=== PATIENT | female | born 1970 | race Caucasian/White ===

== ENCOUNTER 2022-05-07 07:00 | Outpatient (CLI) | payer BC, SELFPAY ==
--- NOTE | 2022-05-07 07:14 | CT_ITS ---
WS: [id number] CT NECK TECHNIQUE: Contrast-enhanced CT of the neck with coronal and sagittal reformatted images. CLINICAL INFORMATION: OTALGIA, UNSPECIFIED EAR COMPARISON: None. DLP: 248.[address] scans at [facility] use at least one of these dose optimization techniques: automated e xposure control; mA and/or kV adjustment per patient size (includes targeted exams where dose is matc hed to clinical indication); or iterative reconstruction. FINDINGS: Mastoid air cells are well aerated. Paranasal sinuses are well aerated. Straightening of the normal c ervical lordosis. Normal posterior nasopharynx. Normal parapharyngeal fat. Dental artifact degrades s ome images at the tongue base. Normal parotid glands. Normal submandibular glands. No cervical lympha denopathy. Slightly heterogeneous and somewhat enlarged thyroid gland. No evidence of supraglottic or glottic mass. Lung apices are well aerated. CT/CT neck w con* [id number] IMPRESSION: 1. No acute neck findings. 2. Paranasal sinuses and mastoid air cells well aerated. Normal posterior naso pharynx. 3. No evidence of glottic or glottic mass. 4. No cervical lymphadenopathy. 5. Slightly heterogeneous and somewhat enlarged thyroid gland. This can be fur ther evaluated with ultrasound.
[2022-05-07] MEDS: iohexol 350 mg/mL 100 mL Btl IV (07:47)
== END 2022-05-07 07:01 | disposition home or self-care (01) ==
LOC: RAD 07:02
PROVIDERS: PCP Nurse Practitioner; Visit Provider Specialist
DX: H92.09 Otalgia, unspecified ear (principal)
CPT/HCPCS: 70491

== ENCOUNTER 2022-07-30 06:05 | Outpatient (CLI) | payer BC, SELFPAY ==
--- NOTE | 2022-07-30 06:15 | US_ITS ---
WS: [id number] THYROID ULTRASOUND HISTORY: HYPOTHYROID COMPARISON: None available. Right lobe: 1.9 cm x 2.3 cm x 5.7 cm (w x ap x l). Volume: 13.1 cm3. Enlarged diffuse heterogeneity throughout the gland. No increased vascularity. No discrete nodules. Left lobe: 2.4 cm x 2.0 cm x 6.0 cm (w x ap x l). Volume: 14.7 cm3. Mildly enlarged heterogeneous gland. No discrete nodules. Minimal prominent vascularity. Isthmus: 0.6 cm. US/US thyroid [id number] IMPRESSION: 1. Enlarged heterogeneous gland. 2. No thyroid nodules.
== END 2022-07-30 06:06 | disposition home or self-care (01) ==
LOC: RAD 06:07
PROVIDERS: PCP Nurse Practitioner; Visit Provider Otolaryngology
DX: E03.9 Hypothyroidism, unspecified (principal)
CPT/HCPCS: 76536